=== PATIENT | male | born 1985 | race Caucasian/White ===

== ENCOUNTER 2018-08-13 20:37 | Emergency (ER) | payer SELFPAY ==
[2018-08-13] MEDS ORDERED: Docusate Sodium 100 MG/10 ML UDCUP PO SCH (21:45)
[2018-08-13] MEDS ORDERED: Docusate Sodium 100 MG/10 ML UDCUP FS SCH (21:45)
== END 2018-08-13 23:07 | disposition home or self-care (01) ==
LOC: ERS 20:37
DX: H61.23 Impacted cerumen, bilateral (principal); K02.9 Dental caries, unspecified; F41.9 Anxiety disorder, unspecified; F32.9 Major depressive disorder, single episode, unspecified; F17.210 Nicotine dependence, cigarettes, uncomplicated; Z79.899 Other long term (current) drug therapy
CPT/HCPCS: 69210; 99406

== ENCOUNTER 2018-08-18 08:16 | Emergency (ER) | payer SELFPAY | END 2018-08-18 08:48 | disposition home or self-care (01) | LOC: ERS 08:16 | DX: H60.91 Unspecified otitis externa, right ear (principal); H61.23 Impacted cerumen, bilateral; L23.7 Allergic contact dermatitis due to plants, except food; F41.9 Anxiety disorder, unspecified; F32.9 Major depressive disorder, single episode, unspecified; F17.210 Nicotine dependence, cigarettes, uncomplicated; Z79.899 Other long term (current) drug therapy | CPT/HCPCS: 99282 ==

== ENCOUNTER 2018-10-20 08:33 | Observation (INO) | payer SELFPAY ==
[2018-10-20] MEDS ORDERED: Ondansetron PF 4 MG/2 ML Vial ONE (08:44)
[2018-10-20 09:11] LABS: #Eosinphils 0.1 thou/uL (0.0-0.7); #Lymphocytes 0.9 thou/uL (1.20-3.40); #Monocytes 0.6 thou/uL (0.11-0.59); #Neutrophils 9.7 thou/uL (1.40-6.50); %Basophils 0.1 % (0.0-1.0); %Eosinophils 0.5 % (0.0-10.0); %Lymphocytes 8.2 % (21.0-51.0); %Monocytes 5.4 % (0.0-10.0); %Neutrophils 85.8 % (42.0-75.0); Hemoglobin 16.4 g/dL (14.0-18.0); Mean Corpuscular Hemoglobin 31.8 pg (27.0-31.0); Mean Corpuscular Volume 96.4 fL (78.0-98.0); Platelet Count 273 thou/uL (130-400); RBC Distribution Width 11.6 % (11.5-14.5); Red Blood Cell (RBC) Count 5.15 mill/uL (4.70-6.10); White Blood Cell (WBC) Count 11.3 thou/uL (4.8-10.8)
[2018-10-20] MEDS ORDERED: diphenhydrAMINE 50 MG/ML VIAL ONE (09:17)
[2018-10-20] MEDS ORDERED: Metoclopramide HCl 10 MG/2 ML VIAL ONE (09:17)
[2018-10-20 09:28] LABS: ALT (SGPT) 15 U/L (8-55); AST (SGOT) 18 U/L (5-34); Albumin 4.3 g/dL (3.5-5.0); Alkaline Phosphatase 108 U/L (40-150); Anion Gap 12 mmol/L (10-20); BUN (Urea Nitrogen) 12 mg/dL (8.9-20.6); Bilirubin, Total 0.4 mg/dL (0.2-1.2); Calc. Creatinine Clearance 0 mL/min (70-130); Calcium 8.9 mg/dL (7.8-10.44); Carbon Dioxide 25 mmol/L (22-29); Chloride 103 mmol/L (98-107); Estimated GFR-MDRD 82; Globulin 2.6 g/dL (2.4-3.5); Glucose 107 mg/dL (70-105); Lipase 30 U/L (8-78); Potassium 4.8 mmol/L (3.5-5.1); Protein, Total 6.9 g/dL (6.0-8.3); Sodium 135 mmol/L (136-145)
[2018-10-20] MEDS ORDERED: Ketorolac Tromethamine 30 MG/ML VIAL ONE (09:34)
[2018-10-20] MEDS ORDERED: Haloperidol Lactate 5 MG/ML VIAL ONE (10:14)
--- NOTE | 2018-10-20 13:58 | HP ---
PRIMARY CARE PHYSICIAN: At the [facility] in [place]. CHIEF COMPLAINT: Severe abdominal pain and nausea and vomiting. HISTORY OF PRESENT ILLNESS: Mr. Panda is a pleasant 33-year-old gentleman, who says that he woke up about 7:00 a.m., getting real nauseated, and he started having severe dry heaving. He says he was not really throwing up anything, except for some foam. He also says he started having severe abdominal pain primarily in the epigastric region radiating into the left upper quadrant. He says it was sharp like pain. He denies vomiting any blood. There was no melena. He also says he was feeling alternating hot and cold off and on. He rated the pain about 8/10 and for this reason, he came to the ER for evaluation. In the ER, he was given IV fluids as well as Phenergan and Zofran without much relief. When I see him, he is still more or less writhing in pain on the stretcher and says that he feels nauseated. For this reason, he is being placed in observation for further evaluation. The patient denies using any [id number]-[id number] medications such as ibuprofen or Advil or Tylenol. He does admit to having ulcers in the past, but he says it was years ago and he says that is when he was "drinking heavily." He cannot remember how that pain felt. REVIEW OF SYSTEMS: All systems were reviewed and are normal except for that mentioned in the history of present illness. PAST MEDICAL HISTORY: Significant for depression and anxiety, as well as many broken bones he says due to extreme sports. PAST SURGICAL HISTORY: He has had hand and foot surgery, as well as jaw surgery. ALLERGIES: NO KNOWN DRUG ALLERGIES. SOCIAL HISTORY: He is single. He smokes about a pack a day for couple of years. 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 FAMILY HISTORY: No history of any heritable diseases. MEDICATIONS: Include: 1. Citalopram 40 mg daily. 2. Seroquel 100 mg daily. 3. Gabapentin 600 mg t.i.d. PHYSICAL EXAMINATION: GENERAL: He is alert and oriented. He appears to be in some distress due to pain. He is well developed and well nourished. VITAL SIGNS: Blood pressure was 115/72, heart rate 68, respiratory rate of 17, and temperature is 98.5. HEENT: Pupils are equal, round, and reactive. Extraocular muscles are intact. His sclerae are anicteric. Throat; there is no erythema, no exudates. NECK: No adenopathy. No bruits. LUNGS: Clear to auscultation. There were no wheezing, no rales, no rhonchi. CARDIOVASCULAR: He has a normal S1 and S2. I did not appreciate an S3 or S4. No murmurs, clicks, or rubs. ABDOMEN: Soft. He has some midepigastric as well as left upper quadrant tenderness. He does have some voluntary guarding. There is no rebound. His bowel sounds are present. EXTREMITIES: There is no clubbing or cyanosis. No edema. No calf tenderness. No joint effusions. NEUROLOGIC: Muscle strength is 5/5 in both his upper and lower extremities. SKIN AND INTEGUMENT: There are no skin changes. No rash. LABORATORY DATA: Lab results; his white blood cell count is 11.3, hemoglobin is 16.4, hematocrit is 49.6, and platelet count is 273. Sodium 135, potassium 4.8, chloride is 103, CO2 is 25, BUN of 12, creatinine 1.05, and glucose is 107. His lipase was 30. Liver function tests are normal. ASSESSMENT AND PLAN: This is a 33-year-old gentleman, who presents with a sudden onset of severe abdominal pain and cramping, as well as vomiting. What is concerning is that he could possibly have an obstruction. However, this is unlikely given no history of previous GI or intraabdominal surgeries. However, we will place him in observation and get an abdominal flat and upright to see if he has an obstructive pattern. He could also have peptic ulcer disease with his stricture and therefore, we will place him on IV Protonix as well as IV fluids. Treat him symptomatically for the vomiting and consult GI in the a.m. if the symptoms have not resolved. We will also check an abdominal ultrasound. Place him on n.p.o. except for ice chips. Repeat lab work in the a.m. including another chemistry panel and should his symptoms get worse or if he had signs of obstruction on plain films, then a CT scan would be warranted. Job ID: [id number]
[2018-10-20 14:49] VITALS: BMI 22.6
[2018-10-20 14:50] VITALS: BP 135/70; TEMP 98.4
[2018-10-20] MEDS ORDERED: Sodium Chloride 0.9% 1,000 ML IV SCH (15:00)
[2018-10-20] MEDS ORDERED: Promethazine HCl 25 MG SUPP PR PRN (15:03)
[2018-10-20] MEDS ORDERED: Ondansetron ODT 4 MG TAB PO PRN (15:03)
[2018-10-20] MEDS ORDERED: Lorazepam 2 MG/ML VIAL SLOW IVP PRN (15:03)
[2018-10-20] MEDS ORDERED: D5 0.9% NS w/ 20 mEq KCl 1,000 ML IV SCH (15:03)
[2018-10-20] MEDS ORDERED: Morphine 2 MG/ML SYRINGE SLOW IVP PRN (15:03)
[2018-10-20] MEDS ORDERED: Ondansetron PF 4 MG/2 ML Vial IVP PRN (15:03)
[2018-10-20] MEDS ORDERED: Pantoprazole 40 MG VIAL IVP SCH (21:00)
== END 2018-10-20 15:16 | disposition left against medical advice (07) ==
LOC: ERS 08:33 → ERHOLD 12:56 → T4-B 14:07
PROVIDERS: ADMIT Internal Medicine; ATTEND Internal Medicine
DX: R10.9 Unspecified abdominal pain (principal); R11.2 Nausea with vomiting, unspecified; F41.9 Anxiety disorder, unspecified; F32.9 Major depressive disorder, single episode, unspecified; F17.210 Nicotine dependence, cigarettes, uncomplicated; Z79.899 Other long term (current) drug therapy; Z98.890 Other specified postprocedural states
CPT/HCPCS: 36415; 80053; 83690; 85025; 96365; 96366; 96375; G0378; J1200; J1630; J1885; J2405; J2765

== ENCOUNTER 2018-10-22 06:25 | Emergency (ER) | payer SELFPAY ==
[2018-10-22 07:02] LABS: #Eosinphils 0.1 thou/uL (0.0-0.7); #Lymphocytes 1.6 thou/uL (1.20-3.40); #Monocytes 0.7 thou/uL (0.11-0.59); #Neutrophils 7.9 thou/uL (1.40-6.50); %Basophils 0.2 % (0.0-1.0); %Eosinophils 0.7 % (0.0-10.0); %Lymphocytes 15.3 % (21.0-51.0); %Monocytes 6.7 % (0.0-10.0); %Neutrophils 77.1 % (42.0-75.0); Hemoglobin 16.1 g/dL (14.0-18.0); Mean Corpuscular HGB CONC 34.5 g/dL (32.0-36.0); Mean Corpuscular Volume 95.6 fL (78.0-98.0); Mean Platelet Volume 8.1 fL (7.4-10.4); Platelet Count 262 thou/uL (130-400); RBC Distribution Width 11.6 % (11.5-14.5); Red Blood Cell (RBC) Count 4.89 mill/uL (4.70-6.10); White Blood Cell (WBC) Count 10.3 thou/uL (4.8-10.8)
[2018-10-22 07:27] LABS: ALT (SGPT) 15 U/L (8-55); AST (SGOT) 22 U/L (5-34); Albumin 4.4 g/dL (3.5-5.0); Alkaline Phosphatase 105 U/L (40-150); Anion Gap 13 mmol/L (10-20); BUN (Urea Nitrogen) 12 mg/dL (8.9-20.6); Bilirubin, Total 0.5 mg/dL (0.2-1.2); Calc. Creatinine Clearance 0 mL/min (70-130); Calcium 9.4 mg/dL (7.8-10.44); Carbon Dioxide 25 mmol/L (22-29); Chloride 104 mmol/L (98-107); Estimated GFR-MDRD 81; Globulin 2.7 g/dL (2.4-3.5); Glucose 115 mg/dL (70-105); Potassium 3.9 mmol/L (3.5-5.1); Protein, Total 7.1 g/dL (6.0-8.3); Sodium 138 mmol/L (136-145)
[2018-10-22] MEDS ORDERED: Ondansetron PF 4 MG/2 ML Vial ONE (07:27)
[2018-10-22] MEDS ORDERED: Promethazine HCl 25 MG/ML VIAL ONE (07:27)
[2018-10-22 08:17] LABS: Bilirubin Negative (Negative); Blood, Urine Trace (Negative); Glucose, Urine (Dipstick) Negative (Negative); Leukocyte Trace (Negative); Nitrite Negative (Negative); Protein, Urine (Dipstick) Negative (Neg-Trace); Urobilinogen 0.2 mg/dL (0.2-1.0)
[2018-10-22] MEDS ORDERED: Haloperidol Lactate 5 MG/ML VIAL ONE (08:19)
[2018-10-22 08:23] LABS: Clarity Clear (Clear)
[2018-10-22 08:38] LABS: Bacteria/HPF None Seen HPF (None Seen); Hyaline Casts/LPF 0-3 HYALINE CAST LPF (0-3 Hyaline); Squamous Epithelial 0-3 HPF (0-3)
== END 2018-10-22 07:42 | disposition home or self-care (01) ==
LOC: ERS 06:25
DX: R11.2 Nausea with vomiting, unspecified (principal); F32.9 Major depressive disorder, single episode, unspecified; F41.9 Anxiety disorder, unspecified; F17.210 Nicotine dependence, cigarettes, uncomplicated; Z79.899 Other long term (current) drug therapy
CPT/HCPCS: 36415; 80053; 81003; 81015; 83690; 85025; 96365; 96375; J1630; J2405; J2550

== ENCOUNTER 2018-10-24 09:05 | Emergency (ER) | payer SELFPAY ==
[2018-10-24] MEDS ORDERED: Morphine 4 MG/ML VIAL ONE ×2 (09:26)
[2018-10-24 09:45] LABS: Bilirubin Negative (Negative); Blood, Urine Negative (Negative); Clarity CLEAR (Clear); Glucose, Urine (Dipstick) Negative (Negative); Leukocyte Trace (Negative); Nitrite Negative (Negative); Protein, Urine (Dipstick) Negative (Neg-Trace); Specific Gravity, Urine 1.015 (1.002-1.036); Urobilinogen 0.2 mg/dL (0.2-1.0)
[2018-10-24 09:49] LABS: Bacteria/HPF None Seen HPF (None Seen); Hyaline Casts/LPF 0-3 HYALINE CAST LPF (0-3 Hyaline); RBC/HPF None Seen HPF (0-3); Squamous Epithelial None Seen HPF (0-3)
[2018-10-24 10:25] LABS: #Lymphocytes 0.7 thou/uL (1.20-3.40); #Monocytes 0.6 thou/uL (0.11-0.59); #Neutrophils 8.4 thou/uL (1.40-6.50); %Basophils 0.1 % (0.0-1.0); %Eosinophils 0.2 % (0.0-10.0); %Lymphocytes 7.1 % (21.0-51.0); %Monocytes 5.7 % (0.0-10.0); Hemoglobin 15.4 g/dL (14.0-18.0); Mean Corpuscular HGB CONC 33.4 g/dL (32.0-36.0); Mean Corpuscular Hemoglobin 32.2 pg (27.0-31.0); Mean Corpuscular Volume 96.2 fL (78.0-98.0); Mean Platelet Volume 7.5 fL (7.4-10.4); Platelet Count 246 thou/uL (130-400); RBC Distribution Width 11.5 % (11.5-14.5); Red Blood Cell (RBC) Count 4.79 mill/uL (4.70-6.10); White Blood Cell (WBC) Count 9.7 thou/uL (4.8-10.8)
--- NOTE | 2018-10-24 10:29 | CT ---
CT ABDOMEN WITH CONTRAST CT PELVIS WITH CONTRAST: DATE: 10-24-18 HISTORY: 33-year-old male with left upper quadrant and left lower quadrant abdominal pain, with nausea and hem atemesis. TECHNIQUE: IV injection of iodinated contrast media: 100 ml of Isovue 370 Oral contrast media: Not administered FINDINGS: There is a punctate 1 or 2 mm calculus at a left renal lower pole calyx. There is another finding of two tiny 1 mm calculi abutting each other at a left renal midpole verna (both of these are visualized on the coronal images and poorly visualized on the axial images). There is no hydronephrosis and no other abnormality of the bilateral kidneys, which have bilaterally symmetrical, normal nephrograms. N ormal urinary bladder, appendix, abdominal aorta, adrenals, pancreas, liver, and spleen. No colonic d iverticulitis. No small bowel dilation. No pleural effusion, ascites, or pneumoperitoneum. IMPRESSION: 1. No acute findings. 2. Minimal nephrolithiasis consisting of a few tiny left renal calculi. 3. Otherwise negative. ELE Deshpande POS: CHARLIE
[2018-10-24 10:55] LABS: ALT (SGPT) 13 U/L (8-55); AST (SGOT) 16 U/L (5-34); Alkaline Phosphatase 97 U/L (40-150); Anion Gap 10 mmol/L (10-20); BUN (Urea Nitrogen) 7 mg/dL (8.9-20.6); Bilirubin, Total 0.6 mg/dL (0.2-1.2); Calc. Creatinine Clearance 0 mL/min (70-130); Calcium 8.5 mg/dL (7.8-10.44); Carbon Dioxide 27 mmol/L (22-29); Chloride 103 mmol/L (98-107); Estimated GFR-MDRD Greater than 90; Globulin 2.2 g/dL (2.4-3.5); Glucose 125 mg/dL (70-105); Lipase 30 U/L (8-78); Potassium 3.6 mmol/L (3.5-5.1); Protein, Total 6.2 g/dL (6.0-8.3); Sodium 136 mmol/L (136-145)
== END 2018-10-24 12:36 | disposition home or self-care (01) ==
LOC: ERS 09:05
DX: F12.988 Cannabis use, unspecified with other cannabis-induced disorder (principal); K92.0 Hematemesis; F17.210 Nicotine dependence, cigarettes, uncomplicated; F32.9 Major depressive disorder, single episode, unspecified; Z79.899 Other long term (current) drug therapy
CPT/HCPCS: 36415; 74177; 80053; 81003; 81015; 83690; 85025; 96361; 96374; J2270